=== PATIENT | male | born 1960 | race Caucasian/White ===

== ENCOUNTER 2020-05-05 00:09 | Observation (INO) | payer OTHER ==
[~2020-05-05] VITALS: Ht 172.7 cm; Wt 94.3 kg
--- NOTE | 2020-05-05 00:22 | PHYS DOC ---
Past History Past Medical History: Arthritis, Hypertension General Adult EDM: Chief Complaint: ALLERGIC REACTION HPI: HPI: Patient is a 60 year old male who presents with hx of angio edema felt from blood pressure med BONNIE inhibitor ( lisinopril. ). The patient initially seen at OR. Declined transfer to OR downto that required intubation prior to acceptance. . No observation or ICU / Tele beds currently available at [facility]. Pt. transfered from [facility] - Dr. Harding called initial report and request for assistance in care of pt. Patient presents with continued lip swelling but states he had marked improvement since earlier visit at the OR at [place]. Patient has history of essential hypertension, diabetes, obstructive sleep apnea, morbid obesity, glaucoma, hypokalemia, elevated LFTs, alcohol dependence, elevated PSA, vitamin D deficiency, hyperlipidemia, depression, alcohol dependence, nocturia, palpitations, arthritis, COPD. No recent travel. No severe ill contacts. Normally follows at OR in [place]. Pt. states he has taken Lisinopril approximately 5 yrs, but never had this problem of angio edema. Review of Systems: Review of Systems: Constitutional: Denies fever or chills Eyes: Denies change in visual acuity HENT: Denies nasal congestion or sore throat . Complaints of angio edema. Respiratory: Denies cough or shortness of breath Cardiovascular: Denies chest pain or edema GI: Denies abdominal pain, nausea, vomiting, bloody stools or diarrhea : Denies dysuria Musculoskeletal: Denies back pain or joint pain Integument: Denies rash Neurologic: Denies headache, focal weakness or sensory changes Endocrine: Denies polyuria or polydipsia Lymphatic: Denies swollen glands Psychiatric: Denies depression or anxiety Family History: Family History: Hypertension and diabetes Current Medications: Current Meds: See nursing for home meds Allergies: Allergies: BONNIE inhibitor lisinopril= angioedema Physical Exam: PE: Constitutional: Moderate acute distress, non-toxic appearance. [] HENT: Normocephalic, atraumatic, bilateral external ears normal, oropharynx moist, no oral exudates, nose normal. [Obvious angioedema lips mouth tongue posterior pharynx, Eyes: PERRLA, EOMI, conjunctiva normal, no discharge. [] Neck: Normal range of motion, no tenderness, supple, no stridor. [] Cardiovascular:Heart rate regular rhythm, no murmur [. PMI slightly to the left Lungs & Thorax: Bilateral breath sounds equal apex with few scattered wheezes on auscultation [] Abdomen: Bowel sounds normal, soft, no tenderness, no masses, no pulsatile ma sses. [] Skin: Warm, dry, no erythema, no rash. [] Back: No tenderness, no CVA tenderness. [] Extremities: No tenderness, no cyanosis, no clubbing, ROM intact, no edema. No cording or cruciate Neurologic: Alert and oriented X 3, normal motor function, normal sensory function, no focal deficits noted. [] Psychologic: Affect anxious, judgement normal, mood normal. [] EKG: EKG: My interpretation of EKG shows a sinus rhythm 78 bpm. No acute morphology [] Radiology/Procedures: Radiology/Procedures: X-ray still pending at shift change [] Heart Score: C/O Chest Pain: N/A HEART Score for Chest Pain: HEART Score for Chest Pain Response (Comments) Value History Slighlty/Non-Suspicious 0 ECG Normal 0 Age >45 - < 65 1 Risk Factors 1 or 2 Risk Factors 1 Troponin < Normal Limit 0 Total 2 Risk Factors: Risk Factors: DM, Current or recent (<one month) smoker, HTN, HLP, family history of CAD, obesity. Risk Scores: Score 0 - 3: 2.5% MACE over next 6 weeks - Discharge Home Score 4 - 6: 20.3% MACE over next 6 weeks - Admit for Clinical Observation Score 7 - 10: 72.7% MACE over next 6 weeks - Early Invasive Strategies Course & Med Decision Making: Course & Med Decision Making Pertinent Labs and Imaging studies reviewed. (See chart for details) Discussed presentation, testing and tx plan with Dr. Kelsea Wilburn. Advised admit to tele. Solumedrol 60 bid, Pepcid and Benadryl. Pt. had gradual clearing of angio edema while in ED. Impression: 1. Angio Edema- (suspect BONNIE inhibitors lisinopril) 2. Hx. HTN 3. Hypomagnesium 1.6 4. Hypokalemia 3.2 5. Elevated CK 1034 [] Dragon Disclaimer: Dragon Disclaimer: This electronic medical record was generated, in whole or in part, using a voice recognition dictation system. Dragon Disclaimer This chart was dictated in whole or in part using Voice Recognition software in a busy, high-work load, and often noisy Emergency Department environment. It may contain unintended and wholly unrecognized errors or omissions. Dragon Disclaimer This chart was dictated in whole or in part using Voice Recognition software in a busy, high-work load, and often noisy Emergency Department environment. It may contain unintended and wholly unrecognized errors or omissions. LORELEI BARNETT MD May 05, 2020 00:22
[2020-05-05] MEDS ORDERED: IV RINGERS SOLUTION,LACTATED 1,000 ML IV SCH ×2 (00:30)
[2020-05-05] MEDS ORDERED: IV RINGERS SOLUTION,LACTATED 1,000 ML IV ONE (00:45)
[2020-05-05] MEDS ORDERED: IPRATRPIUM/ALBUTEROL 0.5/2.5MG 3 ML NEBU. NEB ONE (00:45)
[2020-05-05] MEDS ORDERED: ONDANSETRON PF 4 MG/2 ML VIAL. IVP PRN (00:45)
[2020-05-05] MEDS ORDERED: MAGNESIUM SULFATE 1GM 100 ML IV ONE (01:00)
[2020-05-05] MEDS ORDERED: methylPREDNISolone SOD SUCC PF 125 MG/2 ML VIAL. IV ONE (01:00)
[2020-05-05 01:08] LABS: BASO % 0 % (0-3); EOS % 0 % (0-3); HEMATOCRIT 43.6 % (39.0-53.0); HEMOGLOBIN 14.5 g/dL (13.0-17.5); LYMPH # 0.3 x10^3/uL (1.0-4.8); LYMPH % 6 % (24-48); MEAN CORPUSCULAR HEMOGLOBIN 29 pg (25-35); MEAN CORPUSCULAR HGB CONC 33 g/dL (31-37); MEAN CORPUSCULAR VOLUME 87 fL (79-100); MONO # 0.2 x10^3/uL (0.0-1.1); MONO % 4 % (0-9); NEUT # 4.9 x10^3uL (1.8-7.7); NEUT % 91 % (31-73); PLATELET COUNT 166 x10^3/uL (140-400); RED BLOOD COUNT 4.99 x10^6/uL (4.30-5.70); RED CELL DISTRIBUTION WIDTH 14.8 % (11.5-14.5); WHITE BLOOD COUNT 5.4 x10^3/uL (4.0-11.0)
[2020-05-05 01:21] LABS: CALCIUM 9.4 mg/dL (8.5-10.1); CREATININE 0.8 mg/dL (0.7-1.3); GFR 98.6; POTASSIUM 3.2 mmol/L (3.5-5.1)
[2020-05-05 01:36] LABS: ALBUMIN 4.1 g/dL (3.4-5.0); DIRECT BILIRUBIN 0.2 mg/dL (0.0-0.2); MAGNESIUM 1.6 mg/dL (1.8-2.4); TOTAL BILIRUBIN 1.1 mg/dL (0.2-1.0); TOTAL PROTEIN 8.2 g/dL (6.4-8.2)
[2020-05-05 01:46] VITALS: BP 160/91
--- NOTE | 2020-05-05 03:53 | EKG ---
[address] [address] Test Date: 2020-05-05 Test Time: 00:46:59 Pat Name: ALEXSANDER NASSAR Department: Room: Gender: M [employer]: : 1960 Requested By: LORELEI BARNETT Order Number: [id number] Reading MD: Measurements Intervals [place] Rate: 78 P: 42 RI: 166 QRS: 40 QRSD: 90 T: 0 QT: 378 QTc: 434 Interpretive Statements SINUS RHYTHM NORMAL ECG RI6.02 No previous ECG available for comparison
[2020-05-05] MEDS ORDERED: CYCL-331 PO (04:21)
[2020-05-05] MEDS ORDERED: METF500T16 PO (04:21)
[2020-05-05] MEDS ORDERED: TAMS0.4C97 PO (04:21)
[2020-05-05] MEDS ORDERED: TRAM50TA PO (04:21)
[2020-05-05] MEDS ORDERED: CRESTOR5 MG PO (04:21)
[2020-05-05] MEDS ORDERED: MELO7.5T29 PO (04:21)
[2020-05-05] MEDS ORDERED: VITA1TAB19 PO (04:21)
[2020-05-05] MEDS ORDERED: POLY2500 PO (04:21)
[2020-05-05] MEDS ORDERED: MULT-154 PO (04:21)
[2020-05-05] MEDS ORDERED: HYDR12.58 PO (04:21)
[2020-05-05] MEDS ORDERED: CHOL100013 PO (04:21)
[2020-05-05] MEDS ORDERED: AMLO-187 PO (04:21)
--- NOTE | 2020-05-05 04:48 | NUR ---
The patient, ALEXSANDER NASSAR, 60 y/o, M admitted by MARCELLE ASENCIO MD, was given written information regarding hospital policies, unit procedures and contact persons. Valuables were checked and vital signs noted. [facility]. Upon further questioning in assessment, PT stated he tried a different brand of burrito directly before allergic reaction. Reviewed with PT his PMH, PSH, SH, FH and medications. Most information was in the chart [facility] and verified at bedside with PT. PT to have a prostate biopsy this month. PT checks blood sugars weekly. PT states he stopped drinking a week ago. [facility] abuse [facility] since 2008 in [facility] chart.
--- NOTE | 2020-05-05 04:53 | NUR ---
Rapid COVID test at [facility] 05/04/20 negative (see chart for result).
[2020-05-05 05:18] VITALS: BP 172/87
--- NOTE | 2020-05-05 05:51 | RAD ---
XR CHEST 1V INDICATION: Reason: angio edema, dyspnea / Spl. Instructions: / History: . COMPARISON STUDY: None. FINDINGS: Lungs: Normal lung volume. No pulmonary mass or consolidation. The tracheobronchial tree and hilar st ructures are normal. Pleura: No pleural effusion or pneumothorax. Heart and Mediastinum: The cardiomediastinal silhouette is normal. The great vessels of the thorax ar e normal. Bones and Soft Tissues: The bones and soft tissues are within normal limits. IMPRESSION: No acute cardiopulmonary process. Electronically signed by: King Santillan MD (05/05/2020 5:48 AM) [facility]
[2020-05-05] MEDS ORDERED: IPRATRPIUM/ALBUTEROL 0.5/2.5MG 3 ML NEBU. NEB SCH ×2 (08:00→09:00)
[2020-05-05] MEDS ORDERED: FAMOTIDINE 20 MG/2 ML VIAL IVP SCH (09:00)
[2020-05-05] MEDS ORDERED: diphenhydrAMINE 50 MG/ML VIAL IV SCH (09:00)
--- NOTE | 2020-05-05 09:15 | HP ---
ADMIT DATE: 05/05/2020 ATTENDING PHYSICIAN: Dr. Asencio. CHIEF COMPLAINT: Lip swelling. HISTORY OF PRESENT ILLNESS: The patient is a 60-year-old gentleman, who was started on lisinopril. He had developed angioedema as a known side effect. It affected his lips. There were questionable airway obstruction. He declined transfer to the [facility], who thought that he should be intubated. In any event, he was not that bad. He had no stridor or respiratory distress. He had localized swelling and lip swelling. He was sent here for admission. We he got here, he had adequate saturations. He has no obvious stridor. Neck was supple. Lips were indeed swollen, but not to any severity. PAST MEDICAL HISTORY: Significant for obstructive sleep apnea, chronic alcoholism. He just stopped drinking recently. No DT symptoms. He has morbid obesity, glaucoma, elevated liver function. PSA, vitamin D deficiency, hyperlipidemia, major depression, palpitations, degenerative arthritis and COPD. ALLERGIES: HE HAS ALLERGIES OBVIOUSLY TO BONNIE INHIBITORS. SOCIAL HISTORY: He is a drinker up to about a week ago. He smokes occasionally. FAMILY HISTORY: His mom of complications of cirrhosis of the liver at age 54. Father of heart disease at age 70. CURRENT MEDICATIONS: Reviewed. He was taking amlodipine, vitamin D3, Flexeril, hydrochlorothiazide, meloxicam, metformin, multivitamin, Crestor, tramadol and vitamin B. REVIEW OF SYSTEMS: Unremarkable for any fevers or chills. He quit drinking a week ago. He denied any COVID exposures. All other systems reviewed and turned to be negative. PHYSICAL EXAMINATION: GENERAL: When I saw him, this is a pleasant gentleman. INITIAL VITAL SIGNS: Showed a blood pressure 154/84, pulse 75 and regular, temperature 98.7 degrees Fahrenheit, oxygen saturation 98% on room air. HEENT: Head is without trauma. Pupils are reactive. Sclerae nonicteric. Oropharynx is clear. NECK: Supple, no bruits. Lips were indeed swollen. There is no stridor. His tongue was adequate. He had a normal oropharynx without any obvious obstruction. LUNGS: Otherwise clear. CARDIOVASCULAR: Showed regular heart tones. No gallops. ABDOMEN: Soft. EXTREMITIES: Without edema. NEUROLOGIC: Focally intact. SKIN: Warm and dry. PERTINENT LABORATORY STUDIES: Admission hemoglobin 14.5 g/dL with white count of 5400. Sodium 137 mEq, potassium 3.2 mEq, asymptomatic. Nonfasting blood sugar 193. Transaminases are normal. Cardiac enzymes negative for coronary ischemia. ASSESSMENT: 1. A 60-year-old gentleman with angioedema related to lisinopril. 2. Chronic alcoholism. 3. Essential hypertension. 4. Asymptomatic hypokalemia, on replacement. 5. Degenerative arthritis. 6. Chronic obstructive pulmonary disease. 7. Obstructive sleep apnea. PLAN: 1. Observation status. 2. Cortical steroids in form of Solu-Medrol intravenously. 3. Histamine 1 and histamine 2 blockade. 4. Continue home meds. 5. Monitor saturations and watch for signs of obstruction. MARCELLE ASENCIO MD DR: ELVIRA/ana cristina JOB#: [id number] / [id number]
--- NOTE | 2020-05-05 15:26 | DS ---
DATE OF DISCHARGE: 05/05/2020 ATTENDING PHYSICIAN: Dr. Asencio. FINAL DISCHARGE DIAGNOSES: 1. Angioedema of the lips related to BONNIE inhibitor. 2. Essential hypertension. 3. History of sleep apnea. 4. Chronic obstructive pulmonary disease. 5. Chronic alcoholism. 6. Degenerative arthritis. 7. Type 2 diabetes. HISTORY AND PHYSICAL: This pleasant 60-year-old gentleman was prescribed lisinopril, which caused an immediate reaction of swelling of the lips and angioedema. He had no obvious airway obstruction[facility]. We are grateful for the kind referral. PHYSICAL EXAMINATION: Please see the dictated note. PERTINENT LABORATORY AND X-RAY STUDIES: On the database. COURSE IN THE HOSPITAL: The patient was admitted. He was placed on saturation and monitoring of oximeter. He did well. He was given Solu-Medrol along with histamine 1 and histamine 2 blockade. When I saw him the next morning, his lips remained slightly swollen. He had no stridor. Neck was supple. Lungs were clear. Oxygen saturations were at 96% on room air. He had no other symptoms. He wanted to go home. I felt this is reasonable. I recommended prednisone 60 mg p.o. daily for the next 4 days and stop, Claritin-D 10/240 one daily for 4 days and Pepcid 40 mg p.o. daily. His other home meds remain unchanged. He will continue his metformin, blood pressure meds, and scheduled prescription. He will follow up with his PCP at scheduled time. The patient was then discharged from our hospital in stable condition with stable vital signs and improvement of his angioedema obviously avoiding BONNIE inhibitors in the future. He was discharged then in stable condition with explicit instructions and followup care. Prescriptions for prednisone, Pepcid, and Claritin. MARCELLE ASENCIO MD DR: ELVIRA/ana cristina JOB#: [id number] / [id number] [place], [place]
== END 2020-05-05 09:18 | disposition home or self-care (01) ==
LOC: ER 00:09 → INTOOBSV 01:35 → 1 SOUTH 01:35
PROVIDERS: ADMIT Hospitalist; ATTEND Hospitalist
DX: T78.40XA Allergy, unspecified, initial encounter (principal); I10 Essential (primary) hypertension; J44.9 Chronic obstructive pulmonary disease, unspecified; E11.9 Type 2 diabetes mellitus without complications; M19.90 Unspecified osteoarthritis, unspecified site; E83.42 Hypomagnesemia; E87.6 Hypokalemia; G47.30 Sleep apnea, unspecified; F10.129 Alcohol abuse with intoxication, unspecified; E66.01 Morbid (severe) obesity due to excess calories; H40.9 Unspecified glaucoma; R79.89 Other specified abnormal findings of blood chemistry; E78.5 Hyperlipidemia, unspecified; E56.9 Vitamin deficiency, unspecified; T78.3XXA Angioneurotic edema, initial encounter; T46.4X5A Adverse effect of angiotensin-converting-enzyme inhibitors, initial encounter; F32.9 Major depressive disorder, single episode, unspecified; F17.200 Nicotine dependence, unspecified, uncomplicated; Z68.31 Body mass index [BMI] 31.0-31.9, adult
CPT/HCPCS: 36415; 71045; 80048; 80076; 82550; 82947; 83690; 83735; 84443; 84484; 85025; 85610; 85730; 93005; 96365; 96375; 99285; G0378; J1200; J2930; J3475; J3490; J7120; 96361; G0379